=== PATIENT | female | born 2000 | race Caucasian/White ===

== ENCOUNTER 2022-02-19 18:08 | Emergency (ER) | payer OTHER ==
[~2022-02-19] VITALS: Ht 157.5 cm; Wt 53.5 kg
[2022-02-19 18:16] VITALS: BP 139/69
--- NOTE | 2022-02-19 20:40 | NUR ---
PT CALLED IN LOBBY AND OUTSIDE WITH NO ANSWER.
--- NOTE | 2022-02-19 20:45 | NUR ---
CALLED ON PT PERSONAL PHONE. PT ANSWERED AND STATED "OH, I LEFT. PATIENT LEFT WITHOUT BEING SEEN BY DR. LEACH. NO FURTHER CARE PROVIDED FOR PATIENT.
== END 2022-02-19 20:40 | disposition left against medical advice (07) ==
LOC: MED 18:08
DX: G43.909 Migraine, unspecified, not intractable, without status migrainosus (principal); Z53.21 Procedure and treatment not carried out due to patient leaving prior to being seen by health care provider